=== PATIENT | female | born 1980 | race Caucasian/White ===

== ENCOUNTER → 2017-04-26 | Outpatient (CLI) | payer BC, OTHER ==
[~2017-04-26] MED LIST: AMOX-355 PO; HYDR-3812 PO; PRD20T PO; PREN1TAB71 PO
--- NOTE | 2017-04-26 12:47 | Diagnostic Imaging Report ---
PROCEDURE: CT sinuses without contrast TECHNIQUE: Multiple contiguous axial images were obtained through the sinuses without the use of intravenous contrast. Coronal and sagittal reformations were then performed. INDICATION: Chronic sinus infection. FINDINGS: There is leftward deviation of the nasal septum with leftward septal spurring. There is no paranasal sinus air-fluid level or significant mural thickening. The ostiomeatal complexes are both patent. Visualized mastoid air cells are also clear. IMPRESSION: No CT evidence of sinusitis. Dictated by: Dictated on workstation # [id number]
== END ==
LOC: RAD 11:54
PROVIDERS: ATTEND Otolaryngology Otolaryngology/Facial Plastic Surgery
DX: J32.9 Chronic sinusitis, unspecified (principal)
CPT/HCPCS: 70486

== ENCOUNTER 2017-06-12 09:55 | Outpatient (CLI) | payer BC ==
[~2017-06-12] VITALS: Ht 172.7 cm; Wt 60.3 kg
[~2017-06-12 09:55] MED LIST changes: -AMOX-355 PO; -HYDR-3812 PO; -PRD20T PO
[2017-06-12 10:09] VITALS: BP 119/87
[2017-06-12 10:36] LABS: BASOPHILS % (AUTO) 0 % (0-10); EOSINOPHILS % (AUTO) 0 % (0-10); LYMPHOCYTES # (AUTO) 1.1 X 10^3 (1.0-4.0); LYMPHOCYTES % (AUTO) 10 % (12-44); MEAN CORPUSCULAR HEMOGLOBIN 33 PG (25-34); MEAN CORPUSCULAR HGB CONC 35 G/DL (32-36); MEAN CORPUSCULAR VOLUME 96 FL (80-99); MEAN PLATELET VOLUME 10.4 FL (7.4-10.4); MONOCYTES # (AUTO) 0.3 X 10^3 (0.0-1.0); MONOCYTES % (AUTO) 3 % (0-12); NEUTROPHILS # (AUTO) 9.2 X 10^3 (1.8-7.8); NEUTROPHILS % (AUTO) 87 % (42-75); PLATELET COUNT 255 10^3/uL (130-400); RED BLOOD COUNT 4.11 10^6/uL (4.35-5.85); RED CELL DISTRIBUTION WIDTH 11.8 % (10.0-14.5); WHITE BLOOD COUNT 10.6 10^3/uL (4.3-11.0)
[2017-06-12 10:57] LABS: ANION GAP 9 MMOL/L (5-14); BLOOD UREA NITROGEN 15 MG/DL (7-18); BUN/CREATININE RATIO 19; CALCIUM 9.8 MG/DL (8.5-10.1); CARBON DIOXIDE 26 MMOL/L (21-32); CHLORIDE 103 MMOL/L (98-107); GFR ESTIMATED > 60; GLUCOSE 101 MG/DL (70-105); SODIUM 138 MMOL/L (135-145)
[2017-06-12 11:15] LABS: EOSINOPHILS % (MANUAL) 1 %; LYMPHOCYTES % (MANUAL) 9 %; NEUTROPHILS % (MANUAL) 88 %
== END 2017-06-12 10:25 | disposition home or self-care (01) ==
LOC: PREOP 09:55
PROVIDERS: ATTEND Otolaryngology Otolaryngology/Facial Plastic Surgery
DX: Z01.812 Encounter for preprocedural laboratory examination (principal); J32.9 Chronic sinusitis, unspecified; J34.2 Deviated nasal septum; J34.3 Hypertrophy of nasal turbinates
CPT/HCPCS: 36415; 80048; 84703; 85007; 85027; 87081; 93005

== ENCOUNTER 2017-06-15 07:34 | Day surgery (SDC) | payer BC ==
[~2017-06-15] VITALS: Ht 172.7 cm; Wt 60.3 kg
[2017-06-15] MEDS ORDERED: HYDROCORTISONE 100 MG/2 ML (Solu-CORTEF) VIAL ONE (07:58)
[2017-06-15] MEDS ORDERED: AMPICILL/SULB 1.5 GM VIAL (UNASYN) ONE (07:59)
[2017-06-15] MEDS ORDERED: NS (IVPB) 50 ML ONE (08:01)
[2017-06-15] MEDS ORDERED: AMPICILLIN/SULBACTAM 1.5 GM/NS 50 ML IVPB IV ONE ×2 (08:15)
[2017-06-15 08:23] VITALS: BP 130/85
[2017-06-15] MEDS ORDERED: HYDROCORTISONE 100 MG/2 ML (Solu-CORTEF) VIAL IV ONE (08:30)
[2017-06-15] MEDS ORDERED: LACTATED RINGERS 1,000 ML IV PRN (08:38)
[2017-06-15] MEDS ORDERED: FAMOTIDINE 20MG/2ML IV (PEPCID) IV ONE (08:45)
[2017-06-15] MEDS ORDERED: SCOPOLAMINE 1.5 MG (TRANSDERM-SCOP) PATCH TOP ONE (08:45)
[2017-06-15] MEDS ORDERED: ONDANSETRON 4 MG/2 ML (SDV) Z0FRAN IV ONE (08:45)
[2017-06-15] MEDS ORDERED: BSS 15 ML ONE (09:16)
[2017-06-15] MEDS ORDERED: COCAINE HCL 4% 2 ML SYR ONE (09:16)
[2017-06-15] MEDS ORDERED: PHENYLEPHRINE 0.5% NASAL SPR (NEO-SYNEPHRINE) REG ONE (09:16)
[2017-06-15] MEDS ORDERED: LIDOCAINE/EPI 1%-1:200,000 (XYLOCAINE) 10 ML VIAL ONE (09:18)
[2017-06-15] MEDS ORDERED: MIDAZOLAM 2 MG/2 ML (VERSED) VIAL ONE (09:23)
[2017-06-15] MEDS ORDERED: LIDOCAINE PF 2% 5 ML (XYLOCAINE) VIAL ONE (09:23)
[2017-06-15] MEDS ORDERED: ROCURONIUM 50 MG/5 ML (ZEMURON) VIAL IV ONE (09:23)
[2017-06-15] MEDS ORDERED: DEXAMETHASONE 10 MG/ML (DECADRON) 1 ML VIAL ONE (09:23)
[2017-06-15] MEDS ORDERED: proPOfol 200 MG/20 ML (DIPRIVAN) VIAL IV ONE (09:23)
[2017-06-15] MEDS ORDERED: ONDANSETRON 4 MG/2 ML (SDV) Z0FRAN ONE ×2 (09:23→10:02)
[2017-06-15] MEDS ORDERED: fentaNYL INJECTION 100 MCG/2 ML AMP ONE (09:23)
--- NOTE | 2017-06-15 09:55 | Progress Note-Pre Operative ---
Pre-Operative Progress Note H&P Reviewed The H&P was reviewed, patient examined and no changes noted. Date Seen by Provider: Jun 15, 2017 Time Seen by Provider: 09:15 Date H&P Reviewed: Jun 15, 2017 Time H&P Reviewed: 09:15 Pre-Operative Diagnosis: Bilat REc/Chronic sinusitis, dev septum, Bilat red of Inf Turbs RANCHO XIAO MD Jun 15, 2017 9:55 am
[2017-06-15] MEDS ORDERED: FAMOTIDINE 20MG/2ML IV (PEPCID) ONE (09:59)
[2017-06-15] MEDS ORDERED: SEVOFLURANE (ULTANE) 15 ML INHAL SOLN ONE (10:25)
[2017-06-15] MEDS ORDERED: GLYCOPYRROLATE 0.2 MG/ML (ROBINUL) 2 ML VIAL ONE (11:14)
[2017-06-15] MEDS ORDERED: NEOSTIGMINE (BLOXIVERZ ) 1 MG/1ML 10 ML VIAL ONE (11:14)
[2017-06-15] MEDS ORDERED: D5 1/2 NS W/KCL 20 MEQ/L 1,000 ML IV SCH (11:28)
--- NOTE | 2017-06-15 11:28 | Progress Note-Post Operative ---
Post-Operative Progess Note Surgeon (s)/Machinery Mechanic (s) Surgeon RANCHO XIAO MD Machinery Mechanic n/a Pre-Operative Diagnosis Bilat REc/Chronic sinusitis, dev septum, Bilat red of Inf Turbs Post-Operative Diagnosis same Post-Op Procedure Note Date of Procedure: Jun 15, 2017 Name of Procedure Performed: Bilat ESS, Nasal Septoplasty, Bilat Red of Inf Turbs Description & Findings Description and Findings: n/a Anesthesia Type get Estimated Blood Loss minimal Packing none. Specimen(s) collected/removed Bilat Chronic sinus disese, nasal septum RANCHO XIAO MD Jun 15, 2017 11:28 am
[2017-06-15] MEDS ORDERED: HYDROcodone/APAP 5 MG/325 MG (LORTAB) TAB PO PRN (11:30)
[2017-06-15] MEDS ORDERED: predniSONE 20 MG TAB PO ONE (11:30)
[2017-06-15] MEDS ORDERED: ACETAMINOPHEN 325 MG TABLET/CAPLET (TYLENOL) PO PRN (11:30)
[2017-06-15] MEDS ORDERED: PROMETHAZINE INJ 25 MG/ML (PHENERGAN) AMP IVP PRN (11:30)
[2017-06-15] MEDS ORDERED: MEPERIDINE (DEMEROL) INJ 50 MG/ML IVP PRN (11:45)
[2017-06-15] MEDS ORDERED: HYDROmorphone (DILAUDID) 2 MG/ML VIAL IVP PRN (11:45)
[2017-06-15] MEDS ORDERED: morphine INJ 10 MG/ML 1ML (SYR OR VIAL) IVP PRN (11:45)
[2017-06-15] MEDS ORDERED: ONDANSETRON 4 MG/2 ML (SDV) Z0FRAN IVP PRN (11:45)
[2017-06-15] MEDS ORDERED: PROMETHAZINE INJ 25 MG/ML (PHENERGAN) AMP IVP ONE (12:15)
[2017-06-15 12:30] VITALS: BP 134/94
[2017-06-15] MEDS ORDERED: PRD20T PO (12:43)
[2017-06-15] MEDS ORDERED: HYDR-3812 PO (12:43)
[2017-06-15] MEDS ORDERED: AMOX-355 PO (12:43)
[2017-06-15 13:00] VITALS: BP 130/88
[2017-06-15 13:30] VITALS: BP 131/89
[2017-06-15 14:00] VITALS: BP 131/89
== END 2017-06-15 14:40 | disposition home or self-care (01) ==
LOC: SDC 07:34
PROVIDERS: ATTEND Otolaryngology Otolaryngology/Facial Plastic Surgery
DX: J32.2 Chronic ethmoidal sinusitis (principal); J34.2 Deviated nasal septum; J34.3 Hypertrophy of nasal turbinates

== ENCOUNTER → 2023-04-04 | Outpatient (CLI) | payer OTHER ==
[~2023-04-04] MED LIST changes: +ACHD5005 PO; +AMOX-355 PO; +PRD20T PO
--- NOTE | 2023-04-04 15:29 | Diagnostic Imaging Report ---
INDICATION: Routine screening. COMPARISON: No prior mammograms are available for comparison. This is a baseline study. TECHNIQUE: 2D and 3D bilateral screening mammography was performed with CAD. FINDINGS: There are bilateral subpectoral breast implants. The implant contours appear smooth. No extracapsular rupture is seen. The breast parenchyma is markedly dense, limiting the sensitivity of mammography. No mass is identified. There are several punctate calcifications in the left breast. No malignant-appearing microcalcifications are seen. The axillae are unremarkable. A circumscribed benign nodule in the inferior right breast is noted. The axillae are unremarkable. IMPRESSION: No mammographic features suspicious for malignancy are identified. ACR BI-RADS Category 2: Benign findings. Result letter will be mailed to the patient. Note: At least 10% of breast cancer is not imaged by mammography. Dictated by: Dictated on workstation # [id number]
== END ==
LOC: RAD 09:56
PROVIDERS: ATTEND Nurse Practitioner Family
DX: Z12.31 Encounter for screening mammogram for malignant neoplasm of breast (principal)
CPT/HCPCS: 77063; 77067